=== PATIENT | male | born 1985 | race Caucasian/White ===

== ENCOUNTER 2017-08-27 21:29 | Emergency (ER) | payer OTHER ==
[~2017-08-27] VITALS: Ht 177.8 cm; Wt 98.2 kg
[~2017-08-27 21:29] MED LIST: DEXAMETHASONE 4 MG/ML VIAL IVP ONE; ONDANSETRON 4 MG/2 ML VIAL IVP ONE; PROPOFOL 200 MG/20 ML VIAL IV ONE; SEVOFLURANE 250 ML BTL INH ONE
[2017-08-27 21:38] VITALS: BP 114/70
--- NOTE | 2017-08-27 21:44 | NUR ---
AMBULATED TO ER BED 10
--- NOTE | 2017-08-27 21:46 | NUR ---
SHIRLEY BRENNER NOTIFIED.
--- NOTE | 2017-08-27 22:15 | NUR ---
32Y/M PT. PRESENTS TO ED WITH C/O UPPER BACK PAIN X 2 HR. PT. STATES PAIN START AFTER LIFTING STUFF, THEN HAVE HARD TIME CATCHING BREATH. AAO X4, AMBULATORY WITH STEDAY GAIT. RESPIRATIONS ROOM AIR, EVEN AND UNLABORED, BL LUNG CLEAR. NO S/SX OF DISTRESS AT THIS TIME. VSS, ER MADE AWARE OF PT. STATUS.
[2017-08-27] MEDS ORDERED: KETOROLAC 30 MG/ML VIAL IM ONE (22:20)
[2017-08-27] MEDS ORDERED: DIAZEPAM 5 MG TAB PO ONE (22:20)
--- NOTE | 2017-08-27 23:00 | NUR ---
Patient discharged with v/s stable. Written and verbal after care instructions given and explained. Patient alert, oriented and verbalized understanding of instructions. Ambulatory with steady gait. All questions addressed prior to discharge. ID band removed. Patient advised to follow up with PMD. Rx of NAPROSYN 500 MG, VALIUM 5 MG given. Patient educated on indication of medication including possible reaction and side effects. Opportunity to ask questions provided and answered.
[2017-08-27 23:05] VITALS: BP 110/75
== END 2017-08-27 23:00 | disposition home or self-care (01) ==
LOC: MED 21:29
DX: S29.012A Strain of muscle and tendon of back wall of thorax, initial encounter (principal); K21.9 Gastro-esophageal reflux disease without esophagitis; Z88.5 Allergy status to narcotic agent; Z88.8 Allergy status to other drugs, medicaments and biological substances; X58.XXXA Exposure to other specified factors, initial encounter; Y93.89 Activity, other specified; Y92.89 Other specified places as the place of occurrence of the external cause; Y99.8 Other external cause status
CPT/HCPCS: 71020; 96372; 99284; J1100; J1885; J2405; J2704